=== PATIENT | male | born 2000 | race Two or more races ===

== ENCOUNTER 2023-11-24 18:38 | Emergency (ER) | payer OTHER ==
[~2023-11-24] VITALS: Ht 167.6 cm; Wt 68.2 kg
[2023-11-24 19:50] VITALS: PULSE 78; RESP 16; TEMP 98; O2SAT 99
[2023-11-24] MEDS ORDERED: IBUP-1455 PO (20:29)
[2023-11-24] MEDS ORDERED: ACET500T58 PO (20:29)
[2023-11-24] MEDS ORDERED: AUG875T PO (20:29)
[2023-11-24] MEDS ORDERED: BACIOIN15 TOP (20:29)
[2023-11-24] MEDS: AMOXICILLIN/CLAVUL 875 MG TAB PO ONE (20:55)
[2023-11-24] MEDS: BACITRACIN TOP OINT 1 UD PKG TOP ONE (20:55)
[2023-11-24 21:55] VITALS: BP 109/67; PULSE 92; RESP 16; O2SAT 98
== END 2023-11-24 21:56 | disposition home or self-care (01) ==
LOC: ER 18:38 → EDBD 18:38 → ER 21:56
DX: S41.132A Puncture wound without foreign body of left upper arm, initial encounter (principal); S41.131A Puncture wound without foreign body of right upper arm, initial encounter; W54.0XXA Bitten by dog, initial encounter; Y93.89 Activity, other specified; Y92.89 Other specified places as the place of occurrence of the external cause; Y99.8 Other external cause status